=== PATIENT | female | born 1995 | race Caucasian/White ===

== ENCOUNTER → 2019-04-19 | Outpatient (CLI) | payer OTHER ==
--- NOTE | 2019-04-19 16:19 | US ---
EXAMINATION TYPE: Transabdominal DATE OF EXAM: 04/19/2019 3:48 PM COMPARISON: NONE CLINICAL HISTORY: Z36 Confirm dates. EXAM PERFORMED: Transabdominal (TA) EXAM MEASUREMENTS: GESTATIONAL AGE / DATING Physician Established: Not yet established Dates by LMP: LMP unknown Dates by First Scan: No previous this is first scan Dates by Current Scan for: (9 weeks/4 days) EDC: 11/18/19 MATERNAL ANATOMY Uterus: 13.5 x 6.0 x 7.6cm Right Ovary: 3.6 x 2.2 x 1.9cm Left Ovary: 3.0 x 1.3 x 1.5cm Post CDS / Adnexa: wnl Presence of free fluid: no Presence of corpus luteal cyst: no Presence of subchorionic bleed: no GESTATION / SURVEY CRL: 2.7cm ( 9 weeks/4 days) Yolk Sac (normal less than 6mm): 4.mm Heart Rate: 181 bpm Rhythm: Normal IUP: Viable IUP Date of LMP: unknown Beta HcG (if available): not available at this time IMPRESSION: Single viable intrauterine uterine .
== END | disposition home or self-care (01) ==
LOC: RADUSWWP 15:29
PROVIDERS: ATTEND Obstetrics & Gynecology
DX: Z36.9 Encounter for antenatal screening, unspecified (principal)
CPT/HCPCS: 76801

== ENCOUNTER 2019-09-25 14:25 | Outpatient (CLI) | payer OTHER ==
[2019-09-25 14:55] LABS: Appearance,Urine Clear (Clear); Bilirubin,Urine Negative (Negative); Blood,Urine Negative (Negative); Color,Urine Yellow; Glucose,Urine (UA) Negative (Negative); Hyaline Casts,Urine 1 /lpf (0-2); Ketones,Urine Negative (Negative); Leukocyte Esterase,Urine Trace (Negative); Mucus,Urine Occasional /hpf; Nitrite,Urine Negative (Negative); Protein,Urine Trace (Negative); RBC,Urine <1 /hpf (0-5); Specific Gravity,Urine 1.017 (1.001-1.035); Squamous Epithelial Cell,Urine 2 /hpf (0-4); Urobilinogen,Urine <2.0 mg/dL (<2.0); WBC,Urine 1 /hpf (0-5)
[2019-09-25 15:00] LABS: Creatinine,Urine Random 138.5 mg/dL
[2019-09-25 15:01] LABS: Protein/Creatinine Ratio,Urine 0.059
[2019-09-25 15:17] LABS: Basophils # (A) 0.1 k/uL (0-0.2); Basophils % (A) 1 %; Eosinophils # (A) 0.3 k/uL (0-0.7); Eosinophils % (A) 3 %; Lymphocytes # (A) 1.8 k/uL (1.0-4.8); Lymphocytes % (A) 15 %; MCHC 32.4 g/dL (31.0-37.0); MCV 95.5 fL (80.0-100.0); Mean Platelet Volume 9.3; Monocytes # (A) 0.8 k/uL (0-1.0); Monocytes % (A) 6 %; Neutrophils % (A) 74 %; Platelet Count 195 k/uL (150-450); RBC 4.19 m/uL (3.80-5.40); RDW 14.4 % (11.5-15.5); WBC 12.2 k/uL (3.8-10.6)
[2019-09-25 15:21] LABS: ALT 23 U/L (4-34); AST 33 U/L (14-36); African American GFR (CKD) >90 (>60 ml/min/1.73 sqM); Blood Urea Nitrogen 4 mg/dL (7-17); LDH 546 U/L (313-618); Non-African American GFR(CKD) >90 (>60 ml/min/1.73 sqM); Uric Acid 3.6 mg/dL (3.7-7.4)
[2019-09-25 15:36] VITALS: BP 142/81; PULSE 100; RESP 18; TEMP 98.7
--- NOTE | 2019-09-29 08:24 | P.MSEPDOC ---
Presenting Problems - Arrival Data Date of Arrival on Unit: 09/25/19 Time of Arrival on Unit: 14:35 Mode of Transport: Ambulatory - Complaint OB-Reason for Admission/Chief Complaint: PIH Comment: ABEL oneill sent from office with orders Medical History - Information : 2 Para: 1 Term: 1 : 0 Abortions: Spontaneous or Elective: 0 Number of Living Children: 1 - Gestational Age Gestational Age by STEPHANE (wks/days): 32 Weeks and 2 Days - History Comment: no care since 16 weeks gestation, high BP in office today Review of Systems - Review of Systems Constitutional: No problems Breast: No problems ENT: No problems Cardiovascular: No problems Respiratory: No problems Gastrointestinal: No problems Genitourinary: No problems Musculoskeletal: No problems Neurological: No problems Skin: No problems Vital Signs - Temperature Temperature: 98.7 F Temperature Source: Oral - Pulse Right Sitting Brachial Pulse Rate: 100 Pulse Assessment Method: Automatic Cuff - Respirations Respiratory Rate: 18 Oxygen Delivery Method: Room Air O2 Sat by Pulse Oximetry: 95 - Blood Pressure Right Arm Sitting Blood Pressure: 142/81 Blood Pressure Mean: 101 Blood Pressure Source: Automatic Cuff Medical Screen Scoring (Pre) - Cervical Exam Dilation: Exam Deferred Effacement: Exam Deferred - Uterine Contractions Frequency: > 5 minutes apart = 1 Duration: N/A Intensity: N/A - Maternal Vital Signs Maternal Temperature: N/A Maternal Blood Pressure: N/A Signs of Preeclampsia: N/A Maternal Respirations: N/A - Maternal Trauma Maternal Trauma: N/A - Assessment - Baby A Baseline FHR: 135 Heart Rate - NICHD Category: Category I (Normal) = 0 NST: Reactive Position: N/A Station: N/A - Total Score - Baby A Total Score - Baby A: 1 - Total Score - Baby B Total Score - Baby B: 1 - Total Score - Baby C Total Score - Baby C: 1 - Level of Risk - Baby A Level of Risk - Baby A: Low (0-5) - Level of Risk - Baby B Level of Risk - Baby B: Low (0-5) - Level of Risk - Baby C Level of Risk - Baby C: Low (0-5) Physician Notification (Pre) - Physician Notified Physician Notified Date: 09/25/19 Physician Notified Time: 15:30 New Order Received: Yes - Notification Comment Comment: dc home. Disposition - Disposition OB Disposition: Discharge to home Discharge Date: 09/25/19 Discharge Time: 15:36 I agree with the RN Medical Screening Exam: Yes Risk & Benefit of care provided described in d/c instruction: Yes Diagnosis: GESTATIONAL HTN W/O SIGNIFICANT PROTEINURIA, THIRD TRIMESTER
== END 2019-09-25 15:37 | disposition home or self-care (01) ==
LOC: FBPOP 14:25
PROVIDERS: ATTEND Obstetrics & Gynecology
DX: O13.3 Gestational [pregnancy-induced] hypertension without significant proteinuria, third trimester (principal); Z3A.32 32 weeks gestation of pregnancy
CPT/HCPCS: 59025; 81001; 82565; 82570; 83615; 84156; 84450; 84460; 84520; 84550; 85025

== ENCOUNTER 2019-10-06 17:25 | Outpatient (CLI) | payer OTHER ==
[2019-10-06 18:15] VITALS: BP 127/81; PULSE 100; RESP 16; TEMP 97.5
--- NOTE | 2019-10-16 23:04 | P.MSEPDOC ---
Presenting Problems - Arrival Data Date of Arrival on Unit: 10/06/19 Time of Arrival on Unit: 17:30 Mode of Transport: Ambulatory - Complaint OB-Reason for Admission/Chief Complaint: Pain Comment: right hip pain while out walking Medical History - Information : 2 Para: 1 Term: 1 : 0 Abortions: Spontaneous or Elective: 0 Number of Living Children: 1 - Gestational Age Gestational Age by STEPHANE (wks/days): 33 Weeks and 6 Days - History Complications: Prior Review of Systems - Review of Systems Constitutional: No problems Breast: No problems ENT: No problems Cardiovascular: No problems Respiratory: No problems Gastrointestinal: No problems Genitourinary: No problems Musculoskeletal: No problems Neurological: No problems Skin: No problems Vital Signs - Temperature Temperature: 97.5 F Temperature Source: Oral - Pulse Right Brachial Pulse Rate: 100 Pulse Assessment Method: Automatic Cuff - Respirations Respiratory Rate: 16 Oxygen Delivery Method: Room Air - Blood Pressure Right Arm Blood Pressure: 127/81 Blood Pressure Mean: 96 Blood Pressure Source: Automatic Cuff Medical Screen Scoring (Pre) - Cervical Exam Dilation: Exam Deferred Effacement: Exam Deferred - Uterine Contractions Frequency: N/A Duration: N/A Intensity: N/A - Maternal Vital Signs Maternal Temperature: N/A Maternal Blood Pressure: N/A Signs of Preeclampsia: N/A Maternal Respirations: N/A - Maternal Trauma Maternal Trauma: N/A - Assessment - Baby A Baseline FHR: 135 Heart Rate - NICHD Category: Category I (Normal) = 0 NST: Reactive Position: N/A Station: N/A - Total Score - Baby A Total Score - Baby A: 0 - Total Score - Baby B Total Score - Baby B: 0 - Total Score - Baby C Total Score - Baby C: 0 - Level of Risk - Baby A Level of Risk - Baby A: Low (0-5) - Level of Risk - Baby B Level of Risk - Baby B: Low (0-5) - Level of Risk - Baby C Level of Risk - Baby C: Low (0-5) Physician Notification (Pre) - Physician Notified Physician Notified Date: 10/06/19 Physician Notified Time: 18:08 New Order Received: Yes (discharge home) Disposition - Disposition OB Disposition: Discharge to home Discharge Date: 06/14/20 Discharge Time: 18:15 I agree with the RN Medical Screening Exam: Yes Risk & Benefit of care provided described in d/c instruction: Yes Diagnosis: UNSPECIFIED ABDOMINAL PAIN
== END 2019-10-06 18:16 | disposition home or self-care (01) ==
LOC: FBPOP 17:25
PROVIDERS: ATTEND Obstetrics & Gynecology
DX: O26.93 Pregnancy related conditions, unspecified, third trimester (principal); Z3A.33 33 weeks gestation of pregnancy
CPT/HCPCS: 59025; G0463; 99213

== ENCOUNTER 2019-10-28 16:05 | Inpatient (IN) | payer OTHER ==
--- NOTE | 2019-10-28 16:50 | P.PN ---
Progress Note - Text Progress Note Date: 10/28/19 Margaret is seen and evaluated in labor and delivery. She was sent over due to mildly elevated blood pressures in the office of 130/90. Her initial blood pressure here was 147/80 she did have once again elevation blood pressure 155/103 but this was immediately after me discussing with her the potential for delivery today if her blood pressures and labs were continued to be abnormal and she got very upset began crying and will likely once she comes down have her blood pressure returned to normal range. She I did discuss that she could end up needing to have her baby tonight if her blood pressures and/or labs were elevated otherwise the plan will be to deliver her tomorrow. I did offer to keep her overnight but she has a child at home has no care and she is in need of going into the care of the child. She is aware that there is a small chance that even with normal labs and blood pressure she could have seizure be preeclamptic but if her labs show no preeclampsia and her serial blood pressures her back to minimally elevated or normal then the plan will be to try and discharge her to home and bring her back in the morning. If however she continues to have elevations or changes she'll need to be admitted and or be delivered tonight. On physical exam heart regular, lungs clear, extremities without pain. There is no peripheral edema. The tendon reflexes are 1+. She denies headache/epigastric pain/visual changes and has no other signs or symptoms of preeclampsia. Labs are pending. She is signed out to Dr. Torre at this time. He is aware and understands treatment plan moving forward.
[2019-10-28 17:14] LABS: Basophils % (A) 1 %; Eosinophils # (A) 0.2 k/uL (0-0.7); Eosinophils % (A) 3 %; HCT 37.5 % (34.0-46.0); HGB 12.5 gm/dL (11.4-16.0); Lymphocytes # (A) 1.4 k/uL (1.0-4.8); Lymphocytes % (A) 19 %; MCH 31.7 pg (25.0-35.0); MCHC 33.4 g/dL (31.0-37.0); MCV 94.9 fL (80.0-100.0); Mean Platelet Volume 10.1; Monocytes # (A) 0.5 k/uL (0-1.0); Monocytes % (A) 7 %; Neutrophils # (A) 5.1 k/uL (1.3-7.7); Neutrophils % (A) 69 %; Platelet Count 186 k/uL (150-450); RBC 3.95 m/uL (3.80-5.40); RDW 13.8 % (11.5-15.5); WBC 7.5 k/uL (3.8-10.6)
[2019-10-28 17:15] LABS: ALT 24 U/L (4-34); AST 39 U/L (14-36); African American GFR (CKD) >90 (>60 ml/min/1.73 sqM); Blood Urea Nitrogen 7 mg/dL (7-17); LDH 593 U/L (313-618); Non-African American GFR(CKD) >90 (>60 ml/min/1.73 sqM); Uric Acid 4.5 mg/dL (3.7-7.4)
[2019-10-28 17:24] LABS: Appearance,Urine Clear (Clear); Bilirubin,Urine Negative (Negative); Blood,Urine Negative (Negative); Color,Urine Yellow; Glucose,Urine (UA) Negative (Negative); Ketones,Urine 1+ (Negative); Leukocyte Esterase,Urine Negative (Negative); Mucus,Urine Many /hpf; Nitrite,Urine Negative (Negative); PH, Urine 6.5 (5.0-8.0); Protein,Urine 1+ (Negative); RBC,Urine 1 /hpf (0-5); Specific Gravity,Urine 1.029 (1.001-1.035); Squamous Epithelial Cell,Urine 1 /hpf (0-4); WBC,Urine 4 /hpf (0-5)
[2019-10-28] MEDS ORDERED: CITRIC ACID-SODIUM CITRATE 15 ML CUP PO ONE (17:52)
[2019-10-28] MEDS ORDERED: LACTATED RINGERS 1,000 ML IV ONE (17:52)
--- NOTE | 2019-10-28 17:59 | P.HPOB ---
History of Present Illness H&P Date: 10/28/19 Chief Complaint: Hypertension This patient is a 24-year-old 2 para 1 female estimated date of confinement 11/18/2019 estimated gestational age 37-0/7 weeks who was admitted to triage earlier this evening by Dr. Sam from the office for evaluation of hypertension. Patient's history is such that she was very late to seek care at about 16 weeks and has only had 2 or 3 visits since that time. Patient did have elevated blood pressure at 32 weeks however has had only 1 visits since that time. Today her blood pressure was elevated and she was sent to labor and delivery has persistent significant blood pressure elevations with 1+ proteinuria and elevated liver test. heart tones are reactive. I discussed these findings with the patient recommended proceed with delivery at this time. Patient's had a previous section as requested repeat. Review of Systems Genitourinary: Reports Menstruation: Reports amenorrhea Past Medical History Additional Past Medical History / Comment(s): History of anemia History of Any Multi-Drug Resistant Organisms: None Reported Past Surgical History: Section Past Anesthesia/Blood Transfusion Reactions: No Reported Reaction Past Psychological History: No Psychological Hx Reported Smoking Status: Former smoker Past Alcohol Use History: None Reported Past Drug Use History: None Reported Medications and Allergies Home Medications Medication Instructions Recorded Confirmed Type Pnv No.95/Ferrous Fum/Folic AC 1 each PO DAILY 09/25/19 10/28/19 History [ Multivitamin Tablet] Allergies Allergy/AdvReac Type Severity Reaction Status Date / Time No Known Allergies Allergy Verified 10/06/19 17:31 Exam Vital Signs Temp Pulse Resp BP 10/28/19 16:22 98.3 F 96 16 146/90 10/28/19 16:11 98.3 F 96 16 146/90 Intake and Output 10/28/19 10/28/19 10/28/19 06:59 14:59 22:59 Other: Weight 79.832 kg - OBG Physical Exam Abdomen: bowel sounds normal, no diffuse tenderness, no bruit present, no guarding noted, no hepatomegaly, no splenomegaly, no mass Results Result Diagrams: 10/28/19 16:51 10/28/19 16:51 Abnormal Lab Results - Last 24 Hours (Table) 10/28/19 10/28/19 Range/Units 16:51 17:00 AST 39 H (14-36) U/L Urine Protein 1+ H (Negative) Urine Ketones 1+ H (Negative) Urine Mucus Many H (None) /hpf Assessment and Plan Assessment: This is a 24-year-old 2 para 1 female 37 weeks gestation with elevated b lood pressures, 1+ proteinuria and mild liver function elevation consistent with preeclampsia. Patient's had a previous section desires repeat. Plan is to proceed with delivery by repeat low transverse section. (1) 37 weeks gestation of Current Visit: Yes Status: Acute Code(s): Z3A.37 - 37 WEEKS GESTATION OF SNOMED Code(s): 93869195 (2) Preeclampsia Current Visit: Yes Status: Acute Code(s): O14.90 - UNSPECIFIED PRE- ECLAMPSIA, UNSPECIFIED TRIMESTER SNOMED Code(s): 912373074 (3) Previous delivery affecting Current Visit: Yes Status: Acute Code(s): O34.219 - MATERNAL CARE FOR UNSP TYPE SCAR FROM PREVIOUS DEL SNOMED Code(s): 724528851
[2019-10-28 18:10] LABS: Creatinine,Urine Random 340.4 mg/dL
[2019-10-28 18:24] LABS: Protein/Creatinine Ratio,Urine 0.035
[2019-10-28] MEDS ORDERED: ONDANSETRON 4 MG/2 ML VIAL ONE (18:33)
[2019-10-28] MEDS ORDERED: MORPHINE SULFATE (PF) 0.3 MG/0.3 ML SYR ONE (18:33)
[2019-10-28] MEDS ORDERED: KETOROLAC 30 MG/ML 1 ML VIAL ONE (18:33)
[2019-10-28] MEDS ORDERED: DEXAMETHASONE SOD PHOSPHATE 4 MG/ML 1 ML VIAL ONE (18:33)
[2019-10-28] MEDS ORDERED: OXYTOCIN 10 UNIT/ML 1 ML VIAL ONE (18:33)
[2019-10-28] MEDS ORDERED: METOCLOPRAMIDE 5 MG/ML 2 ML VIAL IVP PRN (19:12)
[2019-10-28] MEDS ORDERED: ONDANSETRON 4 MG/2 ML VIAL IVP PRN (19:12)
[2019-10-28] MEDS ORDERED: IBUPROFEN 600 MG TAB PO PRN (19:12)
[2019-10-28] MEDS ORDERED: ZOLPIDEM 5 MG TAB PO PRN (19:12)
[2019-10-28] MEDS ORDERED: diphenhydrAMINE 25 MG CAP PO PRN (19:12)
[2019-10-28] MEDS ORDERED: diphenhydrAMINE 50 MG CAP PO PRN (19:12)
[2019-10-28] MEDS ORDERED: NALOXONE 0.4 MG/ML 1 ML VIAL IV PRN (19:12)
[2019-10-28] MEDS ORDERED: KETOROLAC 30 MG/ML 1 ML VIAL IVP PRN (19:12)
[2019-10-28] MEDS ORDERED: diphenhydrAMINE 50 MG/ML 1 ML VIAL IVP PRN ×2 (19:12)
[2019-10-28] MEDS ORDERED: ACETAMINOPHEN TAB 325 MG TAB PO PRN (19:12)
--- NOTE | 2019-10-28 19:16 | P.OP ---
Date of Procedure: 10/28/19 Preoperative Diagnosis: Intrauterine at term: Gestational hypertension Postoperative Diagnosis: Same Procedure(s) Performed: Repeat low transverse section Anesthesia: spinal Surgeon: Mian Sam [employer] Education Teacher #1: Gigi Barber Estimated Blood Loss (ml): 600 IV fluids (ml): 800 Urine output (ml): 300 Pathology: other (Placenta) Condition: stable Disposition: floor Operative Findings: scores of 8 and 9 at one and 5 minutes with a weight of 6 lbs. 7 oz. Description of Procedure: Patient was taken to the operating suite where a spinal anesthetic was found be adequate. She was prepped and draped in the normal sterile fashion placed in dorsal supine position with leftward tilt. Initially a Pfannenstiel skin incision was made and this incision was then carried through to the underlying layer of fascia with the second knife. Fascia was then nicked in the midline and this opening was extended laterally with Noland scissors. Superior and inf erior aspect of this incision were then grasped tented up and bluntly and sharply dissected off the rectus muscles. Rectus muscles were then divided the midline and sharp dissection through the peritoneum was performed. This opening was then extended superiorly and inferiorly with good visualization of both bowel bladder. Bladder blade was then placed in the bladder flap identified. It was entered with Metzenbaum scissors and carried across face uterus. Bladder flap was then digitally created and moved out of the operative field. Knife was then used to initially incise uterus and was fully developed with a hemostat. It was then extended bluntly. Head was then atraumatically delivered followed by the shoulders. Mouth nares were bulb suctioned. Once baby was fully delivered umbilical cord was clamped cut usual fashion an nursery personnel was present to assume care. Blood for O+ blood type was obtained. Placenta was then delivered intact and Pitocin was added to the IV. Uterus was then exteriorized cleared of clots and debris and closed in 2 layers with 0 Vicryl suture. Once excellent hemostasis was obtained blood and debris was suctioned from the posterior cul-de-sac and uterus was reinserted into the abdomen. Peritoneal layer was then reapproximated with 3-0 Vicryl. Fascial layer was closed with 0 Vicryl. One layer of 3-0 Vicryl was placed in deep subcuticular tissues to reapproximate skin and close space. Skin was then closed subcuticular 3-0 Vicryl. Sponge, lap, needle counts were all correct 2. Patient was then taken to the recovery room in stable and satisfactory condition.
[2019-10-28] MEDS: LACTATED RINGERS 1,000 ML IV SCH ×2 (22:10)
[2019-10-28] MEDS: SENNOSIDES-DOCUSATE SODIUM 1 EACH TAB PO SCH (22:16)
[2019-10-28] MEDS: LABETALOL 100 MG TAB PO SCH (22:16)
[2019-10-29] MEDS: LACTATED RINGERS 1,000 ML IV SCH ×6 (04:01→18:49)
[2019-10-29 05:39] LABS: Basophils % (A) 0 %; Eosinophils # (A) 0.1 k/uL (0-0.7); Eosinophils % (A) 1 %; HCT 33.7 % (34.0-46.0); HGB 11.1 gm/dL (11.4-16.0); Lymphocytes # (A) 1.2 k/uL (1.0-4.8); Lymphocytes % (A) 8 %; MCH 31.6 pg (25.0-35.0); MCV 95.6 fL (80.0-100.0); Mean Platelet Volume 10.6; Monocytes # (A) 0.8 k/uL (0-1.0); Monocytes % (A) 5 %; Neutrophils # (A) 12.2 k/uL (1.3-7.7); Neutrophils % (A) 85 %; Platelet Count 199 k/uL (150-450); RBC 3.53 m/uL (3.80-5.40); RDW 13.7 % (11.5-15.5); WBC 14.3 k/uL (3.8-10.6)
--- NOTE | 2019-10-29 06:08 | P.PN ---
Progress Note - Text Progress Note Date: 10/29/19 24-year-old female status post section with Duramorph spinal postop day #1. VAS 0-3 out of 10 in severity depending on activity. Denies any pruritus, no back pain, no motor or sensory deficits. Ambulating with no difficulty. Overall patient is doing well.
[2019-10-29] MEDS: HYDROcodone/APAP 7.5-325MG 1 EACH TAB PO PRN ×4 (07:58→23:34)
[2019-10-29] MEDS: LABETALOL 100 MG TAB PO SCH ×2 (07:59→20:51)
[2019-10-29] MEDS: SENNOSIDES-DOCUSATE SODIUM 1 EACH TAB PO SCH ×2 (08:00→19:47)
--- NOTE | 2019-10-29 08:00 | P.PNOBGPC ---
Subjective - Subjective Principal diagnosis: Postop day 1 Interval history: Lyn is doing very well postop day 1. She is ambulating, voiding and tolerating her diet. She voices no complaints. Vital signs are stable and afebrile. We'll plan increase in diet today as well as ambulation. All questions are answered for her at this time. Objective - Vital Signs Latest vital signs: Vital Signs Temp Pulse Resp BP Pulse Ox 10/29/19 03:57 98.2 F 78 18 115/75 97 10/29/19 00:00 97.6 F 89 18 137/82 96 10/28/19 21:28 78 18 140/63 99 10/28/19 20:58 97.0 F L 100 18 150/67 99 10/28/19 20:28 96.9 F L 94 18 129/74 98 10/28/19 20:09 97.3 F L 81 18 144/79 99 10/28/19 19:47 97.2 F L 77 18 148/85 99 10/28/19 19:37 97.1 F L 74 18 152/78 99 10/28/19 19:28 96.7 F L 95 18 146/82 100 10/28/19 18:13 98.3 F 98 16 141/100 10/28/19 16:22 98.3 F 96 16 146/90 10/28/19 16:11 98.3 F 96 16 146/90 Intake and Output 10/28/19 10/29/19 10/29/19 22:59 06:59 14:59 Output Total 700 600 Balance -700 -600 Output: Urine 100 600 Uretheral (Rider) 100 300 Estimated Blood Loss 600 Other: Weight 79.832 kg - Exam Lungs: bilateral: normal Chest: Normal S1, Normal S2 Extremities: Present: normal Abdomen: Present: normal appearance, soft. Absent: distention, tenderness Incision: Present: normal, dry, intact Uterus: Present: normal, firm - Labs Labs: Abnormal Lab Results - Last 24 Hours (Table) 10/28/19 10/28/19 10/28/19 Range/Units 16:51 17:00 17:00 WBC (3.8-10.6) k/uL RBC (3.80-5.40) m/uL Hgb (11.4-16.0) gm/dL Hct (34.0-46.0) % Neutrophils # (1.3-7.7) k/uL AST 39 H (14-36) U/L Urine Protein 1+ H (Negative) Urine Ketones 1+ H (Negative) Urine Mucus Many H (None) /hpf U Random Total Protein 13 H (<12) mg/dL 10/29/19 Range/Units 05:20 WBC 14.3 H (3.8-10.6) k/uL RBC 3.53 L (3.80-5.40) m/uL Hgb 11.1 L (11.4-16.0) gm/dL Hct 33.7 L (34.0-46.0) % Neutrophils # 12.2 H (1.3-7.7) k/uL AST (14-36) U/L Urine Protein (Negative) Urine Ketones (Negative) Urine Mucus (None) /hpf U Random Total Protein (<12) mg/dL Microbiology - Last 24 Hours (Table) 10/28/19 17:00 Urine Culture - Preliminary Urine,Clean Catch
[2019-10-30] MEDS: HYDROcodone/APAP 7.5-325MG 1 EACH TAB PO PRN (08:34)
[2019-10-30] MEDS: SENNOSIDES-DOCUSATE SODIUM 1 EACH TAB PO SCH (08:35)
--- NOTE | 2019-10-30 20:18 | DS ---
DISCHARGE SUMMARY PRINCIPAL DIAGNOSIS: Postoperative day number 2 with gestational hypertension. Lyn is doing very well this morning. Her blood pressure this morning was 100/70, and she was not given her labetalol. She had been taking labetalol twice daily, but it was a very low dose due to gestational hypertension at the conclusion of her . She has done very well postoperatively and is ambulating, voiding and tolerating her diet. She voices no real complaints this morning and is requesting discharge home. Prescriptions for [place], Motrin and labetalol have been provided, but we will have her hold labetalol and come into the office on Monday for blood pressure checks so we can determine if she needs to actually be on the medication. Should she have any headaches, lightheadedness, signs or symptoms of preeclampsia or gestational hypertension or other issues, she is to report immediately back to the emergency room - - also if she has any heavy bleeding, high temperatures or severe pain. Again, her vital signs have been stable and this morning her blood pressures have been in the 100s over 70s, and she did not receive her a.m. dose of labetalol, as her blood pressure was too low. Her heart was regular, lungs were clear, extremities without pain. Abdomen was soft. Positive bowel sounds were noted and her incision was otherwise clean, dry and intact. ASSESSMENT: Postoperative day 2. PLAN: Discharge home. Follow up with me on Monday for blood pressure check and in one week for evaluation of incision. Prescriptions for [place] and Motrin are again provided. All of the questions were answered and discharge instructions were thoroughly reviewed. MMODL / IJN: [id number] /
[2019-11-01 08:16] VITALS: BP 107/79; PULSE 92; RESP 15; TEMP 98
== END 2019-10-30 13:00 | disposition home or self-care (01) | DRG 788 ==
LOC: FBPOP 16:05 → 4FBP 17:50
PROVIDERS: ADMIT Obstetrics & Gynecology; ATTEND Obstetrics & Gynecology
PROC: 10D00Z1 Extraction of Products of Conception, Low, Open Approach (ICD-10-PCS; principal; 2019-10-28 17:53)
DX: O14.94 Unspecified pre-eclampsia, complicating childbirth (principal); O24.429 Gestational diabetes mellitus in childbirth, unspecified control; O34.211 Maternal care for low transverse scar from previous cesarean delivery; Z37.0 Single live birth; Z3A.37 37 weeks gestation of pregnancy; Z87.891 Personal history of nicotine dependence
CPT/HCPCS: 81001; 82565; 82570; 83036; 83615; 84156; 84450; 84460; 84520; 84550; 85025; 87086; 88307; 99215